=== PATIENT | female | born 1975 | race Caucasian/White ===

== ENCOUNTER → 2023-02-07 12:32 | Outpatient (CLI) | payer BC, SELFPAY ==
--- NOTE | ~2023-02-07 | MR_ITS ---
MRI of the right shoulder Technique: Axial proton-density fat-sat images, coronal proton density fat-sat and T2 fat-sat images, and sagittal T1-weighted and T2 fat-sat images were acquired. Clinical History: Pain Findings: There is no significant degenerative change at the AC joint. Coracoclavicular, coracoacromi al, and coracohumeral ligaments are intact. There is moderate supraspinatus tendinosis distally. No partial or full-thickness tear of the suprasp inatus or infraspinatus tendon seen. Subscapularis tendon is intact. Tendon of the long head of the b iceps is intact. No labral tear identified. Inferior glenohumeral ligament is intact. There is small glenohumeral joint effusion. No degenerative change at the glenohumeral joint. No fluid distention of the subacromial/subdeltoid bursa. No muscle atrophy or edema identified. Impression: Moderate supraspinatus tendinosis. Small glenohumeral joint effusion, nonspecific. Reviewed, dictated and finalized at [facility]. Impression: Moderate supraspinatus tendinosis. Small glenohumeral joint effusion, nonspecific.
== END ==
PROVIDERS: PCP Family Medicine
DX: M25.511 Pain in right shoulder (principal); G89.29 Other chronic pain; M77.8 Other enthesopathies, not elsewhere classified; M25.411 Effusion, right shoulder
CPT/HCPCS: 73221

== ENCOUNTER 2023-05-11 07:37 | Outpatient (CLI) | payer BC, SELFPAY ==
--- NOTE | ~2023-05-11 | MR_ITS ---
MRI of the cervical spine Clinical History: Radiculopathy Technique: Axial T2-weighted and gradient images, and sagittal T1-weighted, T2-weighted, and STIR jorge ges were acquired. Findings: There is straightening of the normal cervical lordosis. No fracture seen. There is 2 mm ret rolisthesis of C5 over C6. No suspicious focal bone marrow signal abnormality seen. At C2-C3, there is no disc bulge or herniation. No spinal canal stenosis, cord compression, or neural foraminal narrowing. At C3-C4, there is minimal disc osteophyte complex. No spinal canal stenosis, cord compression, or ne ural foraminal narrowing. At C4-C5, there is minimal disc osteophyte complex. No spinal canal stenosis, cord compression, or ne ural foraminal narrowing. At C5-C6, disc osteophyte complex results in minimal flattening the ventral cord with mild canal sten osis. Bilateral neural foramina are preserved. At C6-C7, there is no disc bulge or herniation. No spinal canal stenosis, cord compression, or neural foraminal narrowing. No abnormal signal seen in the spinal cord. Paravertebral soft tissues are unremarkable. Impression: Mild degenerative spondylosis at C5-C6, as detailed above. 2 mm retrolisthesis of C5 over C6. Reviewed, dictated and finalized at [facility]. Impression: Mild degenerative spondylosis at C5-C6, as detailed above. 2 mm retrolisthesis of C5 over C6.
== END 2023-05-11 07:38 ==
LOC: MICIMG 07:40
PROVIDERS: PCP Family Medicine
DX: M54.12 Radiculopathy, cervical region (principal); R20.0 Anesthesia of skin; R20.2 Paresthesia of skin; M43.12 Spondylolisthesis, cervical region; M50.30 Other cervical disc degeneration, unspecified cervical region; M47.812 Spondylosis without myelopathy or radiculopathy, cervical region
CPT/HCPCS: 72141